=== PATIENT | female | born 1955 | race African-American/Black ===

== ENCOUNTER 2025-06-21 20:23 | Emergency (ER) | payer OTHER ==
[~2025-06-21] VITALS: Ht 165.1 cm; Wt 77.0 kg
[2025-06-21 20:27] VITALS: O2SAT 97
[2025-06-21] MEDS: ACETAMINOPHEN 325MG TABLET PO ONE (22:13)
[2025-06-21 23:00] VITALS: TEMP 36.8; O2SAT 100
[2025-06-22] MEDS ORDERED: IBUP-1455 MT (00:10)
[2025-06-22] MEDS ORDERED: GABA100C MT (00:10)
[2025-06-22 00:20] VITALS: BP 122/59; PULSE 67; RESP 16
[2025-06-22] MEDS: IBUPROFEN 600MG TABLET PO ONE (00:20)
== END 2025-06-22 00:34 | disposition home or self-care (01) ==
LOC: ER 20:23
DX: S00.83XA Contusion of other part of head, initial encounter (principal); S09.90XA Unspecified injury of head, initial encounter; I10 Essential (primary) hypertension; Z88.2 Allergy status to sulfonamides; W19.XXXA Unspecified fall, initial encounter; Y93.89 Activity, other specified; Y92.89 Other specified places as the place of occurrence of the external cause; Y99.8 Other external cause status
CPT/HCPCS: 70486; 99284